=== PATIENT | male | born 2000 | race Caucasian/White ===

== ENCOUNTER 2019-11-05 13:30 | Emergency (ER) | payer OTHER, SELFPAY ==
[2019-11-05 13:45] VITALS: BP 151/76; PULSE 103; RESP 16; TEMP 37.2; O2SAT 99
--- NOTE | 2019-11-05 14:01 | ED.HA ---
HPI - Headache General Chief Complaint: Headache Stated Complaint: headache Time Seen by Provider: 11/05/19 14:01 Source: patient Mode of arrival: ambulatory Limitations: no limitations History of Present Illness HPI Narrative: Osmar Crabtree is a 19 yo male with PMH of alcohol and liver failure, here with a migraine headache that is unresponsive to advil. Rated headache as a 6/10 Related Data Home Medications Medication Instructions Recorded Confirmed No Home Medications 11/05/19 11/05/19 Allergies Allergy/AdvReac Type Severity Reaction Status Date / Time No Known Allergies Allergy Unverified 11/05/19 13:45 Review of Systems Review of Systems: Narrative: CONSTITUTIONAL: Denies fever, chills, sweats. EYES: Denies visual changes, redness, discharge. ENT: Denies rhinorrhea, congestion, sore throat, otalgia. CARDIOVASCULAR: Denies chest pain, palpitations, edema. RESPIRATORY: Denies dyspnea, wheezing, cough GASTROINTESTINAL: Denies abdominal pain, nausea, vomiting, diarrhea. GENITOURINARY: Denies dysuria, hematuria, abnormal discharge SKIN: Denies rash or itching. NEUROLOGIC: Denies numbness, or focal weakness. Headache PSYCHIATRIC: Denies anxiety or depression. PMFSH Past Medical History Medical History (Updated 11/05/19 @ 14:08 by Karina Kaplan CNP) Liver failure Family History Family History Other Hypertension Social History Social History (Updated 11/05/19 @ 14:05 by Karina Kaplan CNP) Smoking packs per day: 0.5 Smoking cigarettes per day: 10.0 Smoking status: Current every day smoker Tobacco type: cigarettes and e-cigarettes/vaping Alcohol intake: former Comments At time of signature, I agree with nursing past medical, surgical, social and family history. There is no relevant family history pertinent to the presenting complaint. Elevated blood pressure may be due to headache but should follow-up with primary care physician Exam Narrative: Exam Narrative: GENERAL: This is a well-nourished, well-developed patient, in mild distress. HEAD: normocephalic, atraumatic. EYES: PERRL. Sclera clear/white. Vision is grossly intact. EARS: External ears normal, . Hearing grossly intact. NOSE: External nose normal without nasal discharge, nares without redness, no rhinorrhea. THROAT: Mucous membranes moist, NECK: Neck supple, CARDIOVASCULAR: Regular rate and rhythm without murmurs, gallops, or rubs. RESPIRATORY: Clear to auscultation. Breath sounds equal bilaterally. No wheezes, rales, or rhonchi. GASTROINTESTINAL: Abdomen soft, non-tender, SKIN: warm, intact with no suspicious lesions or rash, good texture and turgor. NEURO: awake, alert, and oriented to person, place and time. There were no obvious focal neurologic abnormalities. Steady gait cranial nerves grossly intact EXTREMITIES: Normal range of motion. BACK: Nontender without deformity Course Course Emergency Course: Unable to prescribe Imitrex for migraine headache due to history of chronic liver disease recommended patient go home and rest alternate Tylenol and ibuprofen and make sure he eats and drinks adequately Follow-up with referral PCP Vital Signs Vital signs: Vital Signs Temperature 99.0 F 11/05/19 13:45 Pulse Rate 103 H 11/05/19 13:45 Respiratory Rate 16 11/05/19 13:45 Blood Pressure 151/76 H 11/05/19 13:45 Pulse Oximetry 99 11/05/19 13:45 Temperature 99.0 F 11/05/19 13:45 Pulse Rate 103 H 11/05/19 13:45 Respiratory Rate 16 11/05/19 13:45 Blood Pressure 151/76 H 11/05/19 13:45 Pulse Oximetry 99 11/05/19 13:45 MDM - Headache Differential Diagnosis Differential diagnosis: Likely migraine, headache, sinusitis and other Discharge Plan Discharge Clinical Impression: Headache Qualifiers: Headache type: unspecified Headache chronicity pattern: acute headache Intractability: not intractable Qualified Code(s): R5
== END 2019-11-05 14:18 | disposition home or self-care (01) ==
PROVIDERS: Emergency Provider Nurse Practitioner
DX: R51 Headache (principal); F17.210 Nicotine dependence, cigarettes, uncomplicated
CPT/HCPCS: 99202; G0463